=== PATIENT | female | born 1960 | race Caucasian/White ===

== ENCOUNTER → 2022-04-30 | Day surgery (SDC) | payer MEDICARE ==
[~2022-04-30] VITALS: Ht 152.4 cm; Wt 63.7 kg
[~2022-04-30] MED LIST: ABILIFY5 MG PO; ALLERGY RELIEF4 MG PO; BENZTROPINE MESY1 MG PO; GAS-X125 M1 PO; METFORMIN HCL500 MG PO; NORCO 5-325 TA1 EACH PO; PEPCID AC20 MG PO; TENORMIN50 MG PO; VENTOLIN HFA IN18 GM INH
[2022-04-30 09:06] LABS: HCT 40.7 % (37.0-47.0); HGB 13.9 g/dl (12.5-16.0); MCH 31.7 pg (25.0-31.0); MCHC 34.2 g/dL (32.0-36.0); MCV 92.7 fL (78.0-100.0); MPV 10.3 fL (6.0-9.5); RBC 4.39 M/uL (4.20-5.40); RDW 12.2 % (11.5-14.0)
[2022-04-30 11:35] LABS: ALBUMIN 3.9 g/dL (3.4-5.0); BILIRUBIN - TOTAL 0.3 mg/dL (0.2-1.0); CREATININE 0.8 mg/dL (0.51-0.95); POTASSIUM 4.1 mmol/L (3.5-5.1); TOTAL PROTEIN 6.9 g/dL (6.4-8.2)
== END | disposition home or self-care (01) ==
LOC: FAS 08:23
PROVIDERS: Surgery
DX: L72.0 Epidermal cyst (principal); Z87.891 Personal history of nicotine dependence
CPT/HCPCS: 36415; 80053; J1100; J2250; J2405; J2704; J7120